=== PATIENT | female | born 1970 | race Caucasian/White ===

== ENCOUNTER 2016-09-14 17:47 | Emergency (ER) | payer MEDICAID ==
[~2016-09-14] VITALS: Ht 172.7 cm; Wt 74.8 kg
[2016-09-14 19:00] LABS: BASOPHILS # (AUTO) 0.1 /CMM (0.0-0.2); BASOPHILS % (AUTO) 0.8 % (0.0-2.0); DIFF TOTAL % 100 %; EOSINOPHILS # (AUTO) 0.1 /CMM (0.0-0.7); HEMATOCRIT 30 % (33-45); HEMOGLOBIN 9.2 g/dL (11.5-14.8); LYMPHOCYTES # (AUTO) 2.6 /CMM (0.8-4.8); LYMPHOCYTES % (AUTO) 32.8 % (20.0-44.0); MEAN CORPUSCULAR HEMOGLOBIN 21 PG (26.0-33.0); MEAN CORPUSCULAR HGB CONC 31 g/dl (31.0-36.0); MEAN CORPUSCULAR VOLUME 68 fL (82-100); MONOCYTES # (AUTO) 0.8 /CMM (0.1-1.30); MONOCYTES % (AUTO) 10.9 % (2.0-12.0); NEUTROPHILS # (AUTO) 4.2 /CMM (1.8-8.9); NEUTROPHILS % (AUTO) 54.5 % (43.0-81.0); PLATELET COUNT (AUTO) 334 /CMM (150-450); RED BLOOD CELL COUNT(AUTO) 4.33 MIL/uL (4.0-5.2); WHITE BLOOD COUNT (AUTO) 7.8 K/uL (4.3-11.0)
[2016-09-14] MEDS ORDERED: ACETAMINOPHEN 325 MG TABLET PO ONE (19:00)
[2016-09-14] MEDS ORDERED: ACETAMINOPHEN ES 500 MG TABLET ONE (19:06)
[2016-09-14 19:09] LABS: KETONES,URINE Trace (NEGATIVE); LEUKOCYTE ESTERASE ,URINE Negative (NEGATIVE); PH,URINE 5.5 (5.0-8.0)
[2016-09-14 19:10] LABS: ADD UA MICROSCOPIC YES
[2016-09-14 19:11] VITALS: BP 116/77
[2016-09-14 19:19] LABS: PREGNANCY TEST URINE QUAL POSITIVE (NEGATIVE)
[2016-09-14 19:23] LABS: ADD URINE CULTURE YES; RBC,URINE 21-50 /HPF (0-2)
== END 2016-09-14 19:47 | disposition home or self-care (01) ==
LOC: ER 17:49
DX: O20.0 Threatened abortion (principal)
CPT/HCPCS: 36415; 76856; 81001; 84702; 84703; 85025; 87086; 99285; A4606; Z7610; 81000-TC

== ENCOUNTER 2016-09-22 09:38 | Emergency (ER) | payer MEDICAID ==
[~2016-09-22] VITALS: Ht 167.6 cm; Wt 68.0 kg
[2016-09-22 10:35] LABS: KETONES,URINE Negative (NEGATIVE); LEUKOCYTE ESTERASE ,URINE Negative (NEGATIVE)
[2016-09-22 10:37] LABS: BASOPHILS # (AUTO) 0.1 /CMM (0.0-0.2); BASOPHILS % (AUTO) 1.3 % (0.0-2.0); DIFF TOTAL % 100 %; EOSINOPHILS # (AUTO) 0.1 /CMM (0.0-0.7); EOSINOPHILS % (AUTO) 1.4 % (0.0-6.0); HEMATOCRIT 31 % (33-45); HEMOGLOBIN 9.4 g/dL (11.5-14.8); LYMPHOCYTES # (AUTO) 1.8 /CMM (0.8-4.8); LYMPHOCYTES % (AUTO) 38.1 % (20.0-44.0); MEAN CORPUSCULAR HEMOGLOBIN 21 PG (26.0-33.0); MEAN CORPUSCULAR HGB CONC 31 g/dl (31.0-36.0); MEAN CORPUSCULAR VOLUME 68 fL (82-100); MONOCYTES # (AUTO) 0.5 /CMM (0.1-1.30); NEUTROPHILS # (AUTO) 2.2 /CMM (1.8-8.9); NEUTROPHILS % (AUTO) 49.2 % (43.0-81.0); PLATELET COUNT (AUTO) 372 /CMM (150-450); RED BLOOD CELL COUNT(AUTO) 4.47 MIL/uL (4.0-5.2); WHITE BLOOD COUNT (AUTO) 4.7 K/uL (4.3-11.0)
[2016-09-22 10:43] LABS: CALCIUM, SERUM 8.3 mg/dL (8.5-10.1); CREATININE 0.8 mg/dL (0.6-1.3); POTASSIUM 3.9 mmol/L (3.5-5.1)
[2016-09-22 10:44] LABS: ADD UA MICROSCOPIC YES
[2016-09-22 10:55] LABS: ALBUMIN 3.7 g/dL (3.4-5.0); BILIRUBIN,TOTAL 0.3 mg/dL (0.2-1.0)
[2016-09-22 11:35] LABS: ADD URINE CULTURE YES
[2016-09-22 13:29] VITALS: BP 122/62
== END 2016-09-22 13:30 | disposition home or self-care (01) ==
LOC: ER 09:42
DX: O03.9 Complete or unspecified spontaneous abortion without complication (principal); D25.9 Leiomyoma of uterus, unspecified; D50.9 Iron deficiency anemia, unspecified
CPT/HCPCS: 36415; 76856; 80053; 81001; 84702; 85025; 87086; 99285; A4606; Z7610; 81000-TC